=== PATIENT | female | born 1985 | race African-American/Black ===

== ENCOUNTER → 2024-11-09 | Outpatient (CLI) | payer BC, SELFPAY ==
--- NOTE | 2024-11-09 10:20 | XR_ITS ---
Examination: Wrist, left 3 views Technique: Wrist AP, oblique, lateral 3 views Date and time of exam: November 09, 2024 at 1124 hours Comparison September 28, 2024 FINDINGS: Subacute intra-articular fracture distal radial metaphysis with stable and satisfactory alignment Carpal bones intact IMPRESSION: Subacute intra-articular fracture distal radial metaphysis with stable and satisfactory alignment
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
== END | disposition home or self-care (01) ==
PROVIDERS: PCP Internal Medicine
DX: S52.92XA Unspecified fracture of left forearm, initial encounter for closed fracture (principal); V89.2XXA Person injured in unspecified motor-vehicle accident, traffic, initial encounter
CPT/HCPCS: 73110; 73130

== ENCOUNTER → 2024-11-24 | Outpatient (CLI) | payer BC, SELFPAY ==
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
== END | disposition home or self-care (01) ==
LOC: CDIM 10:46
PROVIDERS: PCP Internal Medicine; Referring Provider Nurse Practitioner Gerontology; Visit Provider Nurse Practitioner Gerontology
DX: S52.92XA Unspecified fracture of left forearm, initial encounter for closed fracture (principal); X58.XXXA Exposure to other specified factors, initial encounter
CPT/HCPCS: 73110; 73130

== ENCOUNTER → 2024-12-07 | Outpatient (CLI) | payer BC, SELFPAY ==
--- NOTE | 2024-12-07 08:22 | XR_ITS ---
Examination: Hand, left 3 views Technique: Hand AP, oblique, lateral 3 views Date and time of exam: December 07, 2024 at 0842 hours Comparison November 24, 2024 INDICATIONS: Acute fracture distal radial metaphysis September 20, 2024 FINDINGS: Significant healing fracture distal radial metaphysis No acute fracture Adequate bone density IMPRESSION: Significant healing fracture distal radial metaphysis with satisfactory alignment
--- NOTE | 2024-12-07 08:22 | XR_ITS ---
Examination: Wrist, left 3 views Technique: Wrist AP, oblique, lateral 3 views Date and time of exam: December 07, 2024 0842 hours INDICATIONS: Acute fracture distal radial metaphysis September 20, 2024 FINDINGS: Significant healing fractures distal radial metaphysis Stable and satisfactory alignment No new fracture IMPRESSION: Significant healing fractures distal radial metaphysis with stable and satisfactory alignment
== END | disposition home or self-care (01) ==
LOC: CDIM 08:07
DX: S52.92XA Unspecified fracture of left forearm, initial encounter for closed fracture (principal); X58.XXXA Exposure to other specified factors, initial encounter
CPT/HCPCS: 73110; 73130

== ENCOUNTER → 2024-12-22 | Outpatient (CLI) | payer BC, SELFPAY ==
--- NOTE | 2024-12-22 | XR_ITS ---
Examination: Wrist, left 3 views Technique: Wrist AP, oblique, lateral 3 views Date and time of exam: December 22, 2024 0714 hours INDICATIONS: Acute fracture distal radial metaphysis September 20, 2024 FINDINGS: Healed fracture distal radial metaphysis No acute fracture No foreign body IMPRESSION: Healed fracture distal radial metaphysis
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
== END | disposition home or self-care (01) ==
PROVIDERS: PCP Internal Medicine
DX: M25.532 Pain in left wrist (principal); M79.642 Pain in left hand; Z87.81 Personal history of (healed) traumatic fracture
CPT/HCPCS: 73110; 73130